=== PATIENT | male | born 1945 | race Caucasian/White ===

== ENCOUNTER 2017-09-25 06:36 | Day surgery (SDC) | payer MEDICARE, OTHER ==
[~2017-09-25 06:36] MED LIST: RINGER'S SOLUTION,LACTATED 1,000 ML IV PRN
[2017-09-25] MEDS ORDERED: RINGER'S SOLUTION,LACTATED 1,000 ML IV PRN (08:45)
[2017-09-25 09:55] VITALS: BP 137/80
--- NOTE | 2017-09-25 16:11 | OR ---
Operative Report - Dictated Report Narrative: OPERATIVE REPORT DATE OF OPERATION: 09/25/2017 PREOPERATIVE DIAGNOSIS: Positive Cologuard, no prior colon studies POSTOPERATIVE DIAGNOSIS: 4 mm cecal polyp. 3 mm polyp at 50 cm. (Pathology pending) Diverticulosis OPERATION: Colonoscopy with hot biopsy forceps polypectomy 2 SURGEON: Vinicius Parsons MD ANESTHESIA: GIUSEPPE [place] CRNA INDICATIONS FOR PROCEDURE: The patient is a 72-year-old male referred by Dr Vargas. The patient has had no previous dedicated colon studies. There is no family history of colon cancer. The patient did submit a stool sample and has a positive Cologuard FINDINGS: 4 mm adenomatous appearing polyp in the cecum. 3 mm area of possible polypoid changes 50 cm. Mild to moderate diverticulosis otherwise normal colonoscopy to the cecum NARRATIVE OF PROCEDURE: The patient was identified in the holding area, and prior to the administration of anesthetic, a multidisciplinary timeout was observed. With the patient in the left lateral position and after the administration of intravenous sedation, the perineum was inspected. There was no evidence of pilonidal disease or skin breakdown. The external appearance of the anus was normal. Sphincter tone was good. The flexible fiberoptic colonoscope was inserted into the rectum which was insufflated with air. The rectal mucosa and submucosal vascular pattern appeared normal, the prep was seen to be complete. The scope was advanced through the sigmoid colon, which contained numerous non-impacted noninflamed diverticular openings. The scope was advanced up the descending colon, and around the splenic flexure where the triangular haustral architecture of the transverse colon was seen. The scope was advanced across the transverse colon, around the hepatic flexure to the cecum, where the confluence of tenia and the ileocecal valve were identified. There was a 4 mm adenomatous appearing polyp in the apex of the cecum. This was biopsied and then thoroughly destroyed with electrocautery. The site was seen to be complete and hemostatic The mucosa at this level appeared otherwise normal. The scope was then slowly withdrawn in a circular fashion so that all aspects of colonic mucosa were inspected. The colon was a more capacious and character but relatively normal in course. The haustral architecture appeared well preserved throughout with no evidence of external compression. The mucosa and submucosal vascular pattern appeared normal, specifically there was no gross evidence to suggest colitis or inflammatory bowel disease and no AV malformations were seen. The diverticulosis was mild to moderate in degree and most concentrated in the sigmoid colon although proximal diverticula were present as well. At 50 cm a 3 mm area of possible polypoid change was encountered. This was biopsied and thoroughly destroyed with electrocautery. The site was seen to be complete and hemostatic. The scope was gradually withdrawn to the level of the rectum. As much insufflated air as possible was removed. The scope was withdrawn from the patient and the procedure terminated. The patient tolerated the anesthetic and procedure well without complication and was transferred back to the ambulatory surgery area awake and in stable condition. The patient remained stable throughout a period of postoperative observation. He denied abdominal discomfort, was able to tolerate by mouth intake, and was up without assistance. I shared the operative findings with the patient and he was given copies of the photographs which appear in the medical record. He was discharged home with instructions not to engage in hazardous activity today, but may resume normal activity tomorrow, and advance diet as tolerated. He is to continue those medications as listed in the history and physical exam. I made arrangements to contact him with the biopsy reports and will make additional recommendations for treatment and follow-up based upon those results. Reviewed and electronically signed
== END 2017-09-25 06:37 | disposition home or self-care (01) ==
LOC: AMB 06:36
PROVIDERS: ATTEND Surgery
PROC: 0DBH8ZZ Excision of Cecum, Via Natural or Artificial Opening Endoscopic (ICD-10-PCS; principal; 2017-09-25)
PROC: 0DBN8ZX Excision of Sigmoid Colon, Via Natural or Artificial Opening Endoscopic, Diagnostic (ICD-10-PCS; 2017-09-25)
DX: D12.0 Benign neoplasm of cecum; D12.5 Benign neoplasm of sigmoid colon